=== PATIENT | male | born 1945 | race Caucasian/White ===

== ENCOUNTER → 2019-10-01 | Outpatient (CLI) | payer OTHER | LOC: SJCVCIMAG 09:32 | PROVIDERS: ATTEND Nuclear Medicine Nuclear Cardiology | DX: I70.201 Unspecified atherosclerosis of native arteries of extremities, right leg (principal); E11.42 Type 2 diabetes mellitus with diabetic polyneuropathy; Z79.4 Long term (current) use of insulin; Z95.828 Presence of other vascular implants and grafts ==

== ENCOUNTER → 2019-12-09 | Outpatient (CLI) | payer OTHER | LOC: SJCVCIMAG 09:34 → EDBD 13:18 | PROVIDERS: ATTEND Nuclear Medicine Nuclear Cardiology | DX: M79.604 Pain in right leg (principal); M79.89 Other specified soft tissue disorders; Z87.891 Personal history of nicotine dependence ==

== ENCOUNTER → 2020-03-11 | Outpatient (CLI) | payer OTHER | LOC: SJCVCIMAG 07:31 | PROVIDERS: ATTEND Nuclear Medicine Nuclear Cardiology | DX: I82.401 Acute embolism and thrombosis of unspecified deep veins of right lower extremity (principal); Z87.891 Personal history of nicotine dependence ==